=== PATIENT | female | born 1955 | race Two or more races ===

== ENCOUNTER 2024-10-04 11:31 | Inpatient (IN) | payer MEDICARE, MEDICAID ==
[~2024-10-04] VITALS: Ht 165.1 cm; Wt 54.8 kg
--- NOTE | 2024-10-04 11:37 | ED.PDOC ---
Altered Mental Status HPI Comments HPI: Poor historian 69-year-old female brought in by ambulance from home. Patient has a caregiver during the day but is alone at nighttime. Patient is blind. Patient is recently on amoxicillin from some type of upper respiratory infection she does not know. Patient has been more confused than normal in the last two days. Caregiver called 911. Patient follows commands awake alert to name and self. PMHx: Blindness, GERD, HTN, HLD PSHx: None Allergies: Initial Vital Signs: BP: 147/87 HR: 105 Temp: 100.0F SpO2: 97% RR: 18 REVIEW OF SYSTEMS: CONSTITUTIONAL: Denies acute: diaphoresis, chills, HEAD: Denies acute: headache, photophobia Eyes: Denies acute: Double vision, vision loss, eye pain, eye discharge. EARS: Denies acute: tinnitus, hearing loss, ear discharge, ear pain, THROAT: Denies acute: sore throat, swelling, difficulty swallowing , pain with swallowing, change in voice. NECK: Denies acute: neck pain, neck swelling, stiff neck. HEART: Denies acute : chest pain, palpitations, LUNGS: Denies acute: SOB, wheezing, cough, hemoptysis ABDOMEN: Denies acute: abdominal pain, Nausea, Vomiting, diarrhea, melena , hematemesis, hematochezia SKIN: Denies acute: rash, redness, lesions, itchiness. EXTREMITIES: Denies acute: calf pain, numbness, tingling, weakness, denies pain in extremity. Denies acute: Low back pain. Neuro: Denies acute: focal neurological deficit, motor or sensory focal neurological deficit, tremors, seizure like activity, dizziness, loss of bowel or bladder function, cauda equina like symptoms. : Denies acute: dysuria, hematuria, flank pain, increase in urinary frequency. PSYCH: Denies acute: hallucination, suicidal ideation, homicidal ideation. FEMALE: Denies acute: abnormal vaginal bleeding, foul odor, unusual discharge. PHYSICAL EXAM: General: no acute distress, awake and alert. Head: normocephalic, atraumatic. Neck: supple, trachea is midline, no swelling. Throat: Normal phonation. Eyes:, no erythema, no purulent discharge, no proptosis, no icterus. Heart: regular rate, regular rhythm, no significant murmur appreciated. Lungs: no apparent respiratory distress, Able to speak in full sentences. No wheezing, no rhonchi, no crackles. No stridors Clear to auscultation bilaterally. Abdomen: non tender to palpation, non distended, soft, no guarding, no rebound, + bowel sounds. Neuro: Awake, Alert, oriented to name, self, situation, follows commands GCS=15. Speech is normal. Skin: no petechia, no purpura, no cyanosis, non-pale, not jaundice. Lower extremities: --no - Pitting edema no deformity, no focal swelling, no calf TTP. Makes eye contact. moves all four extremities. Face: no apparent facial droop. Patient is blind Time Seen by MD: 11:35 Reviewed Notes: Medications, Allergies Allergies: Coded Allergies: NO KNOWN ALLERGIES (Unverified , 10/04/24) Information Source: Patient Mode of Arrival: EMS Was a procedure done? Was a procedure done?: No Differential Diagnosis (ALOC) Differential Diagnosis: Other (DDX include CVA, TGA, cerebellar ischemia/infarct, carotid stenosis, Intracranial mass/infection/bleed, encephalopathy, electrolyte abnormality, thyroid disease, hydrocephalus, hypoglycemia, drug toxicity, cardiac arrhythmia, seizure, infection in the el [place], Hyperammonemia., kidney failure., sepsis.) X-Ray, Labs, Meds, VS Vital Signs Date Time Temp Pulse Resp B/P (MAP) Pulse Ox O2 Delivery O2 Flow Rate FiO2 10/04/24 18:18 71 18 101/71 (81) 97 10/04/24 17:36 86 17 105/73 (84) 97 10/04/24 15:39 99.1 90 20 131/79 (96) 96 99.1 10/04/24 14:20 102.2 10/04/24 12:53 102.2 101 20 132/81 (98) 96 102.2 10/04/24 12:53 101 20 96 Room Air* 0 21 10/04/24 12:15 100.0 105 18 147/87 (107) 97 Lab Test 10/04/24 15:04 10/04/24 14:00 10/04/24 13:30 10/04/24 13:08 Range/Units Troponin I High Sensitivity 5 5 </=34 ng/L Urine Color Yellow Yellow Urine Clarity Clear Clear Urine pH 8.0 5.0-9.0 Urine Specific [place] 1.012 1.001-1.035 Urine Protein Negative Negative Urine Ketones Trace Negative Urine Blood Negative Negative /uL Urine Nitrite Negative Negative Urine Bilirubin Negative Negative Urine Urobilinogen Normal Negative mg/dL Urine Leukocyte Esterase Negative Negative /uL Urine RBC <1 0 - 4 /hpf Urine WBC 1 0 - 5 /hpf Urine Squamous Epithelial Cells Few <5 /hpf Urine Bacteria None seen None Seen /hpf Urine Glucose Normal Normal mg/dL Urine Opiates Screen Neg NEGATIVE Urine Fentanyl Screen Neg NEGATIVE Urine Barbiturates Screen Neg NEGATIVE Urine Phencyclidine Screen Neg NEGATIVE Urine Amphetamines Screen Neg NEGATIVE Urine Benzodiazepines Screen Neg NEGATIVE Urine Cocaine Screen Neg NEGATIVE Urine Cannabinoids Screen Neg NEGATIVE Influenza Type A Antigen Negative Negative Influenza Type B Antigen Negative Negative SARS-CoV-2 Antigen (Rapid) Negative NEGATIVE Test 10/04/24 11:58 Range/Units White Blood Count 3.7 L 4.4-10.8 10^3/uL Red Blood Count 3.16 L 4.0-5.20 10^6/uL Hemoglobin 11.4 L 12.2-16.2 g/dL Hematocrit 33.6 L 36.0-46.0 % Mean Corpuscular Volume 106.4 H 80.0-100.0 fL Mean Corpuscular Hemoglobin 36.1 H 28.0-32.0 pg Mean Corpuscular Hemoglobin Concent 33.9 32.0-36.0 g/dL Red Cell Distribution Width 15.6 H 11.8-14.3 % Platelet Count 174 140-450 10^3/uL Mean Platelet Volume 8.3 6.9-10.8 fL Neutrophils (%) (Auto) 82.6 H 37.0-80.0 % Lymphocytes (%) (Auto) 9.1 L 10.0-50.0 % Monocytes (%) (Auto) 8.0 0.0-12.0 % Eosinophils (%) (Auto) 0.0 0.0-7.0 % Basophils (%) (Auto) 0.3 0.0-2.0 % Neutrophils # (Auto) 3.1 1.6-8.6 10 ^3/uL Lymphocytes # (Auto) 0.3 L 0.4-5.4 10 ^3/uL Monocytes # (Auto) 0.3 0-1.3 10 ^3/uL Eosinophils # (Auto) 0 0-0.8 10 ^3/uL Basophils # (Auto) 0 0-0.2 10 ^3/uL Nucleated Red Blood Cells 0.1 % Sodium Level 143 136-145 mmol/L Potassium Level 4.0 3.5-5.1 mmol/L Chloride Level 111 H 98-107 mmol/L Carbon Dioxide Level 25 20-31 mmol/L Anion Gap 7 5-15 Blood Urea Nitrogen 5 L 9-23 mg/dL Creatinine 1.04 H 0.550-1.02 mg/dL Glomerular Filtration Rate Calc 57 >90 mL/min BUN/Creatinine Ratio 4.8 L 10.0-20.0 Serum Glucose 98 74-106 mg/dL Lactic Acid Level 1.5 0.4-2.0 mmol/L Calcium Level 9.5 8.7-10.4 mg/dL Magnesium Level 2.1 1.6-2.6 mg/dL Total Bilirubin 0.3 0.2-1.0 mg/dL Aspartate Amino Transferase (AST) 27 13-40 U/L Alanine Aminotransferase (ALT) 16 7-40 U/L Alkaline Phosphatase 50 46-116 U/L Ammonia < 10 L 11-32 umol/L Troponin I High Sensitivity 4 </=34 ng/L B-Type Natriuretic Peptide 15.70 0-100 pg/mL Total Protein 6.6 5.7-8.2 g/dL Albumin 4.4 3.2-4.8 g/dL Current Medications Medications (Trade) Dose Ordered Sig/Tania Route Start Time Stop Time Status Last Admin Acetaminophen (Tylenol Tablet) 650 mg ONCE ONCE PO 10/04/24 14:00 10/04/24 14:01 DC 10/04/24 14:20 [place] [id number] Ph: [phone] DIAGNOSTIC IMAGING Diagnostic Imaging Report : [id number] Signed PATIENT: WESLEY ALEJO ACCT: [id number] UNIT: [id number] : 1955 LOC: ER ROOM / BED: / AGE / SEX: 69 / F ADM STATUS: REG ER SERVICE [id number] ORDERING PHYSICIAN: JASVIR ROBLEDO DO PROCEDURE(s): CXRP - CHEST PORTABLE REASON: aloc, weak ORDER NUMBER(s): [id number], ACCESSION NUMBER(s): [id number] XY CHEST PORTABLE, HISTORY: aloc, weak COMPARISON: None None TECHNICAL DATA: 1 view of the chest was obtained. FINDINGS: Lines and tubes: None Cardiomediastinal silhouette: normal Pulmonary vasculature: normal Lung expansion: normal Lung airspace: normal Lung interstitium: normal Pleura: normal Pneumothorax: no Bones: Unremarkable Other: no IMPRESSION: No acute intrathoracic abnormality. ATED BY: RICHARD GARCIA MD DICTATED DATE/TIME: 10/04/241225 SIGNED BY: RICHARD GARCIA MD SIGNED DATE/TIME: 10/04/241225 Time of 1ST Reevaluation: 12:05 Reevaluation 1ST: Unchanged Patient Education/Counseling: Diagnosis, Treatment Family Education/Counseling: Diagnosis, Treatment Comments Patient presented with the above HPI.--AMS----workup was initiated. patient was found with the above mentioned diagnosis. Patient was given: Fluids and Rocephin Patient ED course and VS have been stabilized. Patient has been reassessed in the ED and remained in a stable condition. Pertinent incidental findings were discussed with the patient and/or family. Patient/family voices understanding and is agreeable with plan. Patient has been observed in the ED adequate length of time to insure improv ement/stability. patient was admitted to the medicine team for further evaluation and treatment of their presentation. All the reports of any imaging studies that were ordered by myself were reviewed by myself. Departure 1 Departure Time of Disposition: 12:46 Impression: Primary Impression: Altered mental status Additional Impression: Fever Disposition: 09 ADMITTED INPATIENT Admit to: Tele Condition: Guarded Discharged With: Self Critical Care Note Critical Care Time?: No I personally scribed for JASVIR ROBLEDO DO ([email or web address]) on 10/04/24 at 11:37. Electronically submitted by Carlos Ruiz ([email or web address]). I personally scribed for JASVIR ROBLEDO DO ([email or web address]) on 10/04/24 at 12:04. Electronically submitted by Carlos Ruiz ([email or web address]). I personally scribed for JASVIR ROBLEDO DO ([email or web address]) on 10/04/24 at 12:17. Electronically submitted by Carlos Ruiz ([email or web address]). I personally scribed for JASVIR ROBLEDO DO ([email or web address]) on 10/04/24 at 12:37. Electronically submitted by Carlos Ruiz ([email or web address]). JASVIR ROBLEDO DO Oct 04, 2024 11:37
--- NOTE | 2024-10-04 12:29 | DVH ---
XY CHEST PORTABLE, HISTORY: aloc, weak COMPARISON: None None TECHNICAL DATA: 1 view of the chest was obtained. FINDINGS: Lines and tubes: None Cardiomediastinal silhouette: normal Pulmonary vasculature: normal Lung expansion: normal Lung airspace: normal Lung interstitium: normal Pleura: normal Pneumothorax: no Bones: Unremarkable Other: no IMPRESSION: No acute intrathoracic abnormality.
[2024-10-04 12:30] LABS: Basophils # (auto) 0 10 ^3/uL (0-0.2); Eosinophils # (auto) 0 10 ^3/uL (0-0.8); Hemoglobin 11.4 g/dL (12.2-16.2); Monocytes # (auto) 0.3 10 ^3/uL (0-1.3); Neutrophils # (auto) 3.1 10 ^3/uL (1.6-8.6); Nucleated Red Blood Cells % 0.1 %
[2024-10-04 12:33] LABS: Basophils % (auto) 0.3 % (0.0-2.0); Hematocrit 33.6 % (36.0-46.0); Lymphocytes # (auto) 0.3 10 ^3/uL (0.4-5.4); Lymphocytes % (auto) 9.1 % (10.0-50.0); Mean Corpuscular Hemoglobin 36.1 pg (28.0-32.0); Mean Corpuscular Hgb Conc. 33.9 g/dL (32.0-36.0); Mean Corpuscular Volume 106.4 fL (80.0-100.0); Neutrophils % (auto) 82.6 % (37.0-80.0); Platelet Count (auto) 174 10^3/uL (140-450); Red Blood Cells 3.16 10^6/uL (4.0-5.20); Red Cell Distribution Width 15.6 % (11.8-14.3); White Blood Cell 3.7 10^3/uL (4.4-10.8)
[2024-10-04 12:53] VITALS: PULSE 101; RESP 20; O2SAT 96
[2024-10-04 12:54] LABS: Alanine Aminotransferase 16 U/L (7-40); Albumin 4.4 g/dL (3.2-4.8); Alkaline Phosphatase 50 U/L (46-116); Anion Gap 7 (5-15); Aspartate Aminotransferase 27 U/L (13-40); BUN/Creatinine Ratio 4.8 (10.0-20.0); Blood Urea Nitrogen 5 mg/dL (9-23); Calcium 9.5 mg/dL (8.7-10.4); Carbon Dioxide 25 mmol/L (20-31); Chloride 111 mmol/L (98-107); Glucose 98 mg/dL (74-106); Magnesium 2.1 mg/dL (1.6-2.6); Sodium 143 mmol/L (136-145)
[2024-10-04 12:55] LABS: Bilirubin, Total 0.3 mg/dL (0.2-1.0); Total Protein 6.6 g/dL (5.7-8.2)
--- NOTE | 2024-10-04 13:20 | DVH ---
EXAM: CT HEAD WITHOUT CONTRAST HISTORY: confusion COMPARISON: None TECHNIQUE: Axial images were obtained and reformatted in coronal and sagittal planes. All CT scans at this medical facility are performed using dose modulation techniques as appropriate t o a performed exam including the following: Automated exposure control was utilized; adjustment of th e MA and/or KV according to patient size; and use of iterative reconstruction technique. CT Dose: CTDI volume is 54.43 mGy. Dose-length product is 963.84 mGy*cm FINDINGS: Supratentorial Region: No evidence for large acute territorial ischemia. No intracranial hemorrhage is noted. Posterior Fossa: No acute abnormality. Brainstem: Unremarkable. Sellar/Suprasellar Region: Unremarkable. Ventricles, Cisterns, Sulci: Age-appropriate. Orbits: Unremarkable. Paranasal Sinuses: Unremarkable. Mastoid Air Cells: Unremarkable. Vasculature: Unremarkable. Bones/Soft Tissues: No acute abnormality. Other: None. IMPRESSION: 1. No acute intracranial process.
[2024-10-04 14:01] LABS: Urine Bacteria None Seen /hpf (None Seen)
[2024-10-04] MEDS: ACETAMINOPHEN 325 MG TAB PO ONE (14:20)
[2024-10-04 14:21] LABS: Urine Blood Negative /uL (Negative); Urine Clarity Clear (Clear); Urine Color Yellow (Yellow); Urine Protein, UAD Negative (Negative); Urine Specific Gravity 1.012 (1.001-1.035); Urine Urobilinogen Normal (Negative); Urine WBC 1 /hpf (0 - 5)
[2024-10-04 14:26] LABS: COVID19 ANTIGEN SOFIA FIA NEGATIVE (NEGATIVE)
[2024-10-04 14:27] LABS: Rapid Influenza A Negative (Negative); Rapid Influenza B Negative (Negative)
[2024-10-04 14:31] LABS: Amphetamine Screen, Urine Neg (NEGATIVE); Barbiturate Scree,Urine Neg (NEGATIVE); Benzodiazephine Screen, Urine Neg (NEGATIVE); Cocaine Screen, Urine Neg (NEGATIVE); Opiate Scree,Urine Neg (NEGATIVE)
[2024-10-04 14:32] LABS: Cannabinoid Screen, Urine Neg (NEGATIVE); Phencyclidine Screen, Urine Neg (NEGATIVE)
[2024-10-04 19:37] VITALS: PULSE 74; RESP 14; O2SAT 98
[2024-10-04] MEDS: cefTRIAXone 1GM/50ML D5W 50 ML IV ONE (20:39)
[2024-10-04] MEDS ORDERED: NITROGLYCERIN 0.4 MG SL TAB SL PRN (21:45)
[2024-10-04] MEDS ORDERED: ONDANSETRON HCL 4 MG/2 ML VIAL IV PRN (21:45)
[2024-10-04] MEDS ORDERED: ACETAMINOPHEN 325 MG TAB PO PRN (21:45)
[2024-10-04] MEDS ORDERED: MORPHINE SULFATE INJ 2 MG/ml SYRG IV PRN (21:45)
--- NOTE | 2024-10-04 22:16 | DVHHPRES ---
History of Present Illness Resident Creating Document: ADONAY DAMON RESIDENT History of Present Illness This is a 69-year-old female with past medical history of dementia, hypertension, arthritis, GERD, CHF, blindness, nodule in the lung presented to the ED via EMS with a chief complaint of altered mental status since morning prior to this admission. According to the caregiver the patient was not on herself and significant deterioration from the baseline that prompted this visit. On presentation patient was A&O x1 and elevated temperature 102 but later she became A&O x3 and was complaining of dry cough and low-grade fever for last 1 week. She was prescribed amoxicillin from urgent care for possible upper respiratory tract infection. The patient denies chest pain, dizziness, shortness of breath, abdominal pain, nausea, vomiting, any change in bowel and bladder habit, dysuria, sick contact or any traveling history. PCP: Dr. Scott Past Medical History Dementia, hypertension, arthritis, GERD, CHF, blindness, nodule in the lung Past Surgical History Knee Surgery ,hand surgery for carpal tunnel syndrome and 3 Family History Breast cancer runs in the family Smoke: No ALCOHOL: none Drugs: None Lives: Alone Review of Systems Constitutional: No: Fever, Chills, Sweats, Weakness, Malaise, Other Eyes: No: Pain, Vision change, Conjunctivae inflammation, Eyelid inflammation, Other, Redness ENT: No: Ear pain, Ear discharge, Nose pain, Nose discharge, Nose congestion, Mouth pain, Mouth swelling, Throat pain, Throat swelling, Other Respiratory: Cough, Dry; No: Shortness of breath, SOB with excertion, Wheezing, Hemoptysis, Pleuritic Pain, Sputum, Wheezing, Other Cardiovascular: No: Chest Pain, Palpitations, Orthopnea, Paroxysmal Noc. Dyspnea, Edema, Lt Headedness, Other Gastrointestinal: No: Nausea, Vomiting, Abdominal Pain, Diarrhea, Constipation, Melena, Hematochezia, Other Genitourinary: No Dysuria, No Frequency, No Incontinence, No Hematuria, No Retention, No Other Musculoskeletal: No: other, neck pain, shoulder pain, arm pain, back pain, hand pain, leg pain, foot pain Skin: No: Rash, Lesions, Jaundice, Bruising, Other Neurological: No: Weakness, Numbness, Incoordination, Change in speech, Confusion, Seizures, Other Allergies: Coded Allergies: NO KNOWN ALLERGIES (Unverified , 10/04/24) Medications Current Medications Medications Dose Ordered Sig/Tania Route Start Time Stop Time Status Last Admin Dose Admin Sodium Chloride 10 ml Q8HR IV 10/04/24 22:00 Acetaminophen 325 mg Q4HP PRN PO 10/04/24 21:45 Acetaminophen/ Hydrocodone Bitart 1 tab Q4HP PRN PO 10/04/24 21:45 Ondansetron HCl 4 mg Q4HP PRN IV 10/04/24 21:45 Enoxaparin Sodium 30 mg DAILY SC 10/05/24 10:00 Nitroglycerin 0.4 mg Q5MINP PRN SL 10/04/24 21:45 Morphine Sulfate 2 mg Q30M PRN IV 10/04/24 21:45 Exam Vital Signs Vital Signs Date Time Temp Pulse Resp B/P (MAP) Pulse Ox O2 Delivery O2 Flow Rate FiO2 10/04/24 21:00 71 16 108/69 (82) 98 10/04/24 19:37 98.6 98.6 10/04/24 19:37 Room Air* 0 21 Exam Physical examination: General Appearance: Alert, Oriented X3, Cooperative, No acute distress HEENT: Atraumatic, PERRLA, EOMI, Mucous membrane moist/pink Respiratory: Clear to auscultation, Normal air movement Cardiovascular: Regular rate, Normal S1, Normal S2, No murmurs, no chest wall tenderness Abdominal: Normal bowel sounds, Soft, No tenderness, No hepatospenomegaly, No masses Extremities: No clubbing, No cyanosis, No edema, Normal pulses, No tenderness/swelling Skin: No rashes, No breakdown, No significant lesion Neuro: Normal speech, Strength at 5/5 X4 ext, Normal tone, Sensation intact, grossly intact cranial nerves Psych/Mental Status: Mental status NL, Mood NL Labs/Xrays Labs Test 10/04/24 15:04 10/04/24 14:00 10/04/24 13:30 10/04/24 11:58 Range/Units Troponin I High Sensitivity 5 </=34 ng/L Urine Color Yellow Yellow Urine Clarity Clear Clear Urine pH 8.0 5.0-9.0 Urine Specific [place] 1.012 1.001-1.035 Urine Protein Negative Negative Urine Ketones Trace Negative Urine Blood Negative Negative /uL Urine Nitrite Negative Negative Urine Bilirubin Negative Negative Urine Urobilinogen Normal Negative mg/dL Urine Leukocyte Esterase Negative Negative /uL Urine RBC <1 0 - 4 /hpf Urine WBC 1 0 - 5 /hpf Urine Squamous Epithelial Cells Few <5 /hpf Urine Bacteria None seen None Seen /hpf Urine Glucose Normal Normal mg/dL Urine Opiates Screen Neg NEGATIVE Urine Fentanyl Screen Neg NEGATIVE Urine Barbiturates Screen Neg NEGATIVE Urine Phencyclidine Screen Neg NEGATIVE Urine Amphetamines Screen Neg NEGATIVE Urine Benzodiazepines Screen Neg NEGATIVE Urine Cocaine Screen Neg NEGATIVE Urine Cannabinoids Screen Neg NEGATIVE Influenza Type A Antigen Negative Negative Influenza Type B Antigen Negative Negative SARS-CoV-2 Antigen (Rapid) Negative NEGATIVE White Blood Count 3.7 L 4.4-10.8 10^3/uL Red Blood Count 3.16 L 4.0-5.20 10^6/uL Hemoglobin 11.4 L 12.2-16.2 g/dL Hematocrit 33.6 L 36.0-46.0 % Mean Corpuscular Volume 106.4 H 80.0-100.0 fL Mean Corpuscular Hemoglobin 36.1 H 28.0-32.0 pg Mean Corpuscular Hemoglobin Concent 33.9 32.0-36.0 g/dL Red Cell Distribution Width 15.6 H 11.8-14.3 % Platelet Count 174 140-450 10^3/uL Mean Platelet Volume 8.3 6.9-10.8 fL Neutrophils (%) (Auto) 82.6 H 37.0-80.0 % Lymphocytes (%) (Auto) 9.1 L 10.0-50.0 % Monocytes (%) (Auto) 8.0 0.0-12.0 % Eosinophils (%) (Auto) 0.0 0.0-7.0 % Basophils (%) (Auto) 0.3 0.0-2.0 % Neutrophils # (Auto) 3.1 1.6-8.6 10 ^3/uL Lymphocytes # (Auto) 0.3 L 0.4-5.4 10 ^3/uL Monocytes # (Auto) 0.3 0-1.3 10 ^3/uL Eosinophils # (Auto) 0 0-0.8 10 ^3/uL Basophils # (Auto) 0 0-0.2 10 ^3/uL Nucleated Red Blood Cells 0.1 % Sodium Level 143 136-145 mmol/L Potassium Level 4.0 3.5-5.1 mmol/L Chloride Level 111 H 98-107 mmol/L Carbon Dioxide Level 25 20-31 mmol/L Anion Gap 7 5-15 Blood Urea Nitrogen 5 L 9-23 mg/dL Creatinine 1.04 H 0.550-1.02 mg/dL Glomerular Filtration Rate Calc 57 >90 mL/min BUN/Creatinine Ratio 4.8 L 10.0-20.0 Serum Glucose 98 74-106 mg/dL Lactic Acid Level 1.5 0.4-2.0 mmol/L Calcium Level 9.5 8.7-10.4 mg/dL Magnesium Level 2.1 1.6-2.6 mg/dL Total Bilirubin 0.3 0.2-1.0 mg/dL Aspartate Amino Transferase (AST) 27 13-40 U/L Alanine Aminotransferase (ALT) 16 7-40 U/L Alkaline Phosphatase 50 46-116 U/L Ammonia < 10 L 11-32 umol/L B-Type Natriuretic Peptide 15.70 0-100 pg/mL Total Protein 6.6 5.7-8.2 g/dL Albumin 4.4 3.2-4.8 g/dL Assessment/Plan Assessment/Plan Assessment and plan: # Acute metabolic encephalopathy due to unspecified cause - CT scan of the head revealed no acute intracranial abnormality - Chest x-ray and UA are negative for signs of infection - Covid and flu both negative - Pending blood culture. # NILS likely secondary to hemodynamically mediated/VMN - IV normal saline at 75 mL/hour - Monitor BMP # Hyperlipidemia - Ezetimibe 10 mg p.o. daily. # DVT prophylaxis - Lovenox 30 mg p.o. daily Goal of care discussed with the patient for more than 20 minutes full code Plan of treatment discussed with Dr. Suarez Plan discussed with: Patient, Other My Orders Orders - ADONAY DAMON RESIDENT Procedure Category Date Status Time Admit ADMIT 10/04/24 Transmitted 21:33 Code Status CODE 10/04/24 Transmitted 21:33 2 Gm Sodium Diet DIET 10/05/24 Transmitted Breakfast Sodium Chloride Lock PHA 10/04/24 In Process (Saline Lock Ns) 22:00 Oxygen Per Hour RT 10/04/24 Transmitted 21:33 Acetaminophen Tablet PHA 10/04/24 In Process (Tylenol Tablet) 21:45 Hydrocodone-Acet PHA 10/04/24 In Process 5/325mg Tab ([place] 21:45 Ondansetron Hcl PHA 10/04/24 In Process (Zofran) 21:45 Complete Blood Count LAB 10/05/24 Verified 04:00 Comprehensive LAB 10/05/24 Verified Metabolic Panel 04:00 Echo 2d Mode Cardiac US 10/04/24 Logged DOP 21:33 Enoxaparin Sodium PHA 10/05/24 In Process (Lovenox) 10:00 Nitroglycerin PHA 10/04/24 In Process Sublingual (Ntrostat 21:45 Morphine Sulfate PHA 10/04/24 In Process Injection 21:45 Oxygen By Nasal RT 10/04/24 Transmitted Cannula 21:33 Stat Ekg For Chest ARTURO 10/04/24 In Process Pain 21:33 Notify Of Changes ARTURO 10/04/24 In Process From Base 21:33 Lathe Machinist For ARTURO 10/04/24 In Process 24 Hours 21:33 Emergency Dysrhythmia ARTURO 10/04/24 In Process Protocol 21:33 Rhythm Strips Once ARTURO 10/04/24 In Process Every Shift 21:33 NS PHA 10/04/24 Transmitted 22:15 Hemoglobin A1c LAB 10/04/24 Transmitted 22:13 Thyroid Stimulating LAB 10/04/24 Transmitted Hormone 22:13 Vitamin B12 LAB 10/04/24 Transmitted 22:13 Vitamin D, 25-Hydroxy LAB 10/04/24 Transmitted 22:13 DAONAY DAMON RESIDENT Oct 04, 2024 22:16
[2024-10-04] MEDS: SODIUM CHLOR 0.9% PF (SALINE LOCK) 10ML VIAL/SYR IV SCH (22:18)
[2024-10-04] MEDS: SODIUM CHLORIDE 0.9% 1,000 ML IV SCH (22:25)
[2024-10-05] VITALS (8 sets, daily range): BP systolic 120–140; BP diastolic 68–80; PULSE 68–89; RESP 17–18; TEMP 98–100.1; O2SAT 94–99
[2024-10-05] MEDS ORDERED: METO25TA93 PO (02:40)
[2024-10-05] MEDS ORDERED: MECL-126 PO (02:40)
[2024-10-05] MEDS ORDERED: SULF500T57 PO (02:40)
[2024-10-05] MEDS ORDERED: GABA-1250 PO (02:40)
[2024-10-05] MEDS ORDERED: HYDR1TAB97 PO (02:40)
[2024-10-05] MEDS ORDERED: TOPI50TA53 PO (02:40)
[2024-10-05] MEDS ORDERED: TOFA1TAB PO (02:40)
[2024-10-05] MEDS ORDERED: PRAV20TA3 PO (02:40)
[2024-10-05] MEDS ORDERED: MAGN241.4 PO (02:40)
[2024-10-05] MEDS ORDERED: DICY10CA PO (02:40)
[2024-10-05] MEDS ORDERED: EZET-10 PO (02:40)
[2024-10-05] MEDS ORDERED: DONE1TAB88 PO (02:40)
[2024-10-05] MEDS ORDERED: SUMA100T15 PO (02:40)
[2024-10-05] MEDS ORDERED: DIPH25CA66 PO (02:40)
[2024-10-05] MEDS ORDERED: METH2.5T62 PO (02:40)
[2024-10-05] MEDS ORDERED: ALBU108A5 INH (02:40)
[2024-10-05] MEDS ORDERED: PANT40T PO (02:40)
[2024-10-05] MEDS ORDERED: INDO-34 PO (02:40)
[2024-10-05 07:40] LABS: Basophils # (auto) 0 10 ^3/uL (0-0.2); Basophils % (auto) 0.4 % (0.0-2.0); Eosinophils # (auto) 0 10 ^3/uL (0-0.8); Hematocrit 32.6 % (36.0-46.0); Hemoglobin 10.6 g/dL (12.2-16.2); Lymphocytes # (auto) 0.4 10 ^3/uL (0.4-5.4); Lymphocytes % (auto) 15.8 % (10.0-50.0); Mean Corpuscular Hemoglobin 34.7 pg (28.0-32.0); Mean Corpuscular Hgb Conc. 32.4 g/dL (32.0-36.0); Mean Corpuscular Volume 106.9 fL (80.0-100.0); Monocytes # (auto) 0.3 10 ^3/uL (0-1.3); Monocytes % (auto) 10.3 % (0.0-12.0); Neutrophils # (auto) 1.9 10 ^3/uL (1.6-8.6); Neutrophils % (auto) 73.5 % (37.0-80.0); Nucleated Red Blood Cells % 0.1 %; Platelet Count (auto) 173 10^3/uL (140-450); Red Blood Cells 3.05 10^6/uL (4.0-5.20); Red Cell Distribution Width 16.4 % (11.8-14.3); White Blood Cell 2.6 10^3/uL (4.4-10.8)
[2024-10-05 07:56] LABS: Alanine Aminotransferase 11 U/L (7-40); Alkaline Phosphatase 42 U/L (46-116); Anion Gap 9 (5-15); Aspartate Aminotransferase 22 U/L (13-40); Blood Urea Nitrogen 6 mg/dL (9-23); Carbon Dioxide 20 mmol/L (20-31); Chloride 112 mmol/L (98-107); Glucose 81 mg/dL (74-106); Potassium 3.6 mmol/L (3.5-5.1); Sodium 141 mmol/L (136-145)
[2024-10-05 07:57] LABS: Bilirubin, Total 0.3 mg/dL (0.2-1.0); Total Protein 6.2 g/dL (5.7-8.2)
[2024-10-05] MEDS: ENOXAPARIN SOD 30 MG/0.3 ML SYRINGE SC SCH (08:19)
[2024-10-05] MEDS: ASPirin-EC 81 mg tab PO SCH (08:20)
[2024-10-05 08:52] LABS: INR 1.02 (0.9-1.15); Partial Thromboplastin Time 29.9 SEC (24.5-34.5); Prothrombin Time 10.8 sec (9.3-11.8)
--- NOTE | 2024-10-05 09:43 | DVH ---
Procedure: US LIVER 10/05/2024 08:46 AM Indication: RUQ pain. Comparison: None Technique: Grayscale and color images of the right upper quadrant were obtained. FINDINGS: ASCITES: None. LIVER: Liver measures 11.3 cm craniocaudal. Liver parenchyma is homogeneous in echotexture. No focal lesion is identified. No intrahepatic ductal dilatation. Normal directional flow is seen in the port al vein. GALLBLADDER: No gallstones. No gallbladder wall edema or pericholecystic fluid. A fold is seen in gal lbladder lumen. Sonographic Jama's sign is negative. COMMON BILE DUCT: 0.2 cm in caliber, within normal limits. PANCREAS: Visualized portions are unremarkable. RIGHT KIDNEY: Normal in size, 8.3 cm in length without hydronephrosis. No focal lesions identified. AORTA, IVC: Visualized portions are unremarkable. OTHER: None. IMPRESSION: 1. No sonographic evidence for acute abnormality in the right upper quadrant. No cholelithiasis or ev idence of cholecystitis.
[2024-10-05] MEDS: EZETIMIBE 10 MG TAB PO SCH (10:00)
--- NOTE | 2024-10-05 10:18 | DVHPNRES ---
Progress Note Date Seen: Oct 05, 2024 Resident Creating Document: LUPILLO HAUSER RESIDENT Medical Necessity Reason Pt with a Central, PICC or Fol: No Subjective Review of Systems This is a 69 year old female with PMHx of dementia, rheumatoid arthritis on methotrexate, GERD, congestive heart failure, hypertension, solitary pulmonary nodule who presented to the ER with a chief complaint of altered mental status. Patient was A&O x1 on arrival and had a fever of 102 F associated with dry cough. Patient lives alone and has a caregiver at home for 6 hours daily. On my evaluation, patient is A&O x3 but not aware to why she was brought to the hospital. She reports that she is legally blind, says that she is experiencing the abdominal pain along with nausea but no vomiting. Denies constipation or diarrhea. She reports feeling feverish but does not know for how long she has a fever. Also reports a dry cough. Per H&P, she was prescribed amoxicillin from urgent care for upper respiratory tract infection. Social history, lives alone. Denies drinking/smoking social illicit drug use. Patient is a [employer]. She has a caregiver at home. Son lives 5 minutes away. She ambulates with a walker. Home medications: Benadryl, donepezil, gabapentin, azithromycin, metoprolol, methotrexate injection every week, pravastatin, Triptan, pantoprazole 40 mg daily, topiramate 10/05 - patient seen and examined at the bedside. Patient is A&O x3. Reports no active complaint. Abdominal pain on tenderness. Objective vital signs Vital Sign Date Time Temp Pulse Resp B/P (MAP) Pulse Ox O2 Delivery O2 Flow Rate FiO2 10/05/24 09:00 98.6 80 18 140/80 (100) 97 98.6 10/05/24 01:39 Room Air* 0 21 Total Intake and Output 10/04/24 10/04/24 10/05/24 15:00 23:00 07:00 Intake Total 100 ml 75 ml Balance 100 ml 75 ml medications Current Medications Medications Dose Ordered Sig/Tania Route Start Time Stop Time Status Last Admin Dose Admin Sodium Chloride 10 ml Q8HR IV 10/04/24 22:00 10/05/24 05:38 10 ML Acetaminophen 325 mg Q4HP PRN PO 10/04/24 21:45 Acetaminophen/ Hydrocodone Bitart 1 tab Q4HP PRN PO 10/04/24 21:45 Ondansetron HCl 4 mg Q4HP PRN IV 10/04/24 21:45 Enoxaparin Sodium 30 mg DAILY SC 10/05/24 10:00 10/05/24 08:19 30 MG Nitroglycerin 0.4 mg Q5MINP PRN SL 10/04/24 21:45 Morphine Sulfate 2 mg Q30M PRN IV 10/04/24 21:45 Sodium Chloride 1,000 ml @ 75 mls/hr [id number] IV 10/04/24 22:15 10/04/24 22:25 75 MLS/HR EZETIMIBE 10 mg DAILY PO 10/05/24 10:00 Aspirin 81 mg DAILY PO 10/05/24 10:00 10/05/24 08:20 81 MG Examination Elderly female patient lying in bed, in no acute distress, wearing glasses because he can not see. General: Cachectic-looking, afebrile, palor, mucosae are dry Cardiovascular: Regular S1 and S2. No murmurs, gallops or rubs. No JVD elevation. Bilateral 1+ pitting edema Respiratory: Decreased bilateral air entry. On Room air Abdomen: Soft, tender right upper quadrant and epigastrium, nondistended, normoactive bowel sounds, no rebound tenderness, no organomegaly, no masses Genitourinary: Deferred MSK/skin: Mobilizes 4 limbs. Skin is dry and warm Neurological: No motor, no sensitive deficits, normal speech. Pupils are isocoric and reactive. Psych/Mental Status: A/Ox3-not oriented to situation laboratory and microbiology Laboratory Tests 10/05/24 06:36 Test 10/05/24 06:36 Range/Units Serum Glucose 81 74-106 mg/dL Labs and/or images reviewed: Labs reviewed by me, Image(s) reviewed by me Problem List/Assessment/Plan Problem List/Assessment/Plan Acute metabolic encephalopathy likely due to viral pneumonia CT head completed, shows no acute intracranial abnormality Hold home medication dicyclomine, Benadryl, gabapentin Probable community-acquired pneumonia, Gram-positive and Gram-negative IV ceftriaxone and azithromycin starting 10/05/2024 Sputum culture pending, MRSA screen pending, COVID and influenza testing is negative Rapid streptococcal antigen screening pending Probable congestive heart failure Patient reports CHF BNP 15 Echocardiogram pending Anemia likely microcytic-cause unknown MCV 106.9 Vitamin B12/folate within normal Patient denies drinking alcohol, blood alcohol pending Low likelihood of NILS Creatinine 1.04 GERD Pantoprazole 40 mg daily GI cocktail 30 mL once to be given History of dementia Continue home medication donepezil daily Dyslipidemia Continue home medication ezetimide 10 mg daily DVT prophylaxis Lovenox 40 mg sc daily food services director consulted for home safety eval Physical therapy eval pending Plan discussed with patient in which all questions have been answered Goals of care discussed with the patient for more than 22 minutes, DNR status Case discussed with Dr. Suarez. Echocardiogram pending. Plan discussed with: Patient My Orders My Orders Orders - LUPILLO HAUSER Procedure Category Date Status Time Blood Alcohol LAB 10/05/24 Logged 07:07 LIVER US 10/05/24 Resulted 08:19 LUPILLO HAUSER Oct 05, 2024 10:18
[2024-10-05] MEDS: cefTRIAXone 1GM/50ML D5W 50 ML IV SCH (11:46)
[2024-10-05] MEDS: POTASSIUM EFFERVESENT TAB 25 MEQ PO ONE (11:47)
[2024-10-05] MEDS: PANTOPRAZOLE 40 MG/10 ML VIAL INJ IV ONE (11:47)
[2024-10-05] MEDS: AZITHROMYCIN 500MG/ 250ML 250 ML IV SCH (12:19)
--- NOTE | 2024-10-05 18:44 | DVHSR ---
APPROVED REPORT EXAM: Two-dimensional and M-mode echocardiogram with Doppler and color Doppler. Blood Pressure: 121/70 mmHg INDICATION Dyspnea RISK FACTORS Height: 5'5", Weight: 103 DIMENSIONS LVDd4.0 (3.8-5.7cm)LA (2D)2.2 (1.9-4.0cm)Aortic Root (2.0-3.7cm) LVDs3.0 (2.5-4.0cm)LA (MM) (1.9-4.0cm)Aortic Cusp Exc (1.5-2.0cm) EF (%) 50.0 (55-70%)Rt. Atrium (1.9-4.0cm)Asc. Aorta cm IVSd0.7 (0.7-1.1cm)RV (D) (1.8-2.4cm) PWd0.8 (0.7-1.1cm) Mitral Valve MitralMitral Stenosis E/A ratio0.02D MVAcm2 Aortic Valve Aortic ValveAortic Stenosis LVOT Diameter1.9 (1.8-2.4cm)Doppler AVAcm2 Pulmonic Valve V20.69m/s Tricuspid Valve TR Velocity2.25m/s [id number] Other Information Quality : Technically LimitedRhythm : Technically limited study due to body habitus. Conclusion Normal left ventricular size and dimension. Normal left ventricular systolic function estimated ejec tion fraction 55%. There is a grade 1 diastolic dysfunction. Normal right ventricular size and dimension.. Normal right ventricular systolic function. Mildly el evated right ventricular systolic pressure at 27 mm of mercury Normal biatrial size and dimension. Normal aortic valve structure and function. Normal mitral valve structure and function. There is mild tricuspid valve regurgitation.. The pulmonary valve is grossly normal. No pericardial effusion. Normal
[2024-10-05] MEDS: DONEPEZIL HYDROCHLORIDE 5 MG TAB PO SCH (22:28)
[2024-10-06] VITALS (13 sets, daily range): BP systolic 101–131; BP diastolic 41–82; PULSE 65–98; RESP 16–20; TEMP 98.2–98.8; O2SAT 90–100
[2024-10-06] MEDS: PANTOPRAZOLE 40 MG TAB PO SCH (06:19)
[2024-10-06 06:24] LABS: Basophils # (auto) 0 10 ^3/uL (0-0.2); Eosinophils # (auto) 0 10 ^3/uL (0-0.8); Lymphocytes # (auto) 0.5 10 ^3/uL (0.4-5.4); Mean Corpuscular Hgb Conc. 33.6 g/dL (32.0-36.0); Monocytes # (auto) 0.3 10 ^3/uL (0-1.3); Neutrophils # (auto) 1.9 10 ^3/uL (1.6-8.6); White Blood Cell 2.7 10^3/uL (4.4-10.8)
[2024-10-06 06:31] LABS: Basophils % (auto) 0.2 % (0.0-2.0); Hematocrit 35.1 % (36.0-46.0); Hemoglobin 11.8 g/dL (12.2-16.2); Lymphocytes % (auto) 17.1 % (10.0-50.0); Mean Corpuscular Hemoglobin 35.4 pg (28.0-32.0); Mean Corpuscular Volume 105.5 fL (80.0-100.0); Monocytes % (auto) 12.4 % (0.0-12.0); Neutrophils % (auto) 70.3 % (37.0-80.0); Nucleated Red Blood Cells % 0.2 %; Platelet Count (auto) 208 10^3/uL (140-450); Red Blood Cells 3.32 10^6/uL (4.0-5.20); Red Cell Distribution Width 15.8 % (11.8-14.3)
[2024-10-06 06:36] LABS: Anion Gap 9 (5-15); Carbon Dioxide 23 mmol/L (20-31); Chloride 109 mmol/L (98-107); Potassium 3.6 mmol/L (3.5-5.1); Sodium 141 mmol/L (136-145)
[2024-10-06 06:38] LABS: Calcium 9.4 mg/dL (8.7-10.4)
[2024-10-06 06:42] LABS: Glucose 83 mg/dL (74-106)
[2024-10-06 06:43] LABS: BUN/Creatinine Ratio 6.4 (10.0-20.0); Blood Urea Nitrogen < 5 mg/dL (9-23)
[2024-10-06] MEDS: MAALOX PLUS or MAALOX 30 ML PO ONE (08:31)
[2024-10-06] MEDS ORDERED: ALBUTEROL SULF 2.5 MG/0.5ML(0.5%) NEB SOLN NEB SCH (11:15)
[2024-10-06] MEDS ORDERED: IPRATROPIUM BROM 0.5 MG/2.5ML INH SOL NEB SCH (11:15)
--- NOTE | 2024-10-06 11:20 | DVHPNRES ---
Progress Note Date Seen: Oct 06, 2024 Resident Creating Document: LUPILLO HAUSER RESIDENT Medical Necessity Reason Pt with a Central, PICC or Fol: No Subjective Review of Systems This is a 69 year old female with PMHx of dementia, rheumatoid arthritis on methotrexate, GERD, congestive heart failure, hypertension, solitary pulmonary nodule who presented to the ER with a chief complaint of altered mental status. Patient was A&O x1 on arrival and had a fever of 102 F associated with dry cough. Patient lives alone and has a caregiver at home for 6 hours daily. On my evaluation, patient is A&O x3 but not aware to why she was brought to the hospital. She reports that she is legally blind, says that she is experiencing the abdominal pain along with nausea but no vomiting. Denies constipation or diarrhea. She reports feeling feverish but does not know for how long she has a fever. Also reports a dry cough. Per H&P, she was prescribed amoxicillin from urgent care for upper respiratory tract infection. Social history, lives alone. Denies drinking/smoking social illicit drug use. Patient is a [employer]. She has a caregiver at home. Son lives 5 minutes away. She ambulates with a walker. Home medications: Benadryl, donepezil, gabapentin, azithromycin, metoprolol, methotrexate injection every week, pravastatin, Triptan, pantoprazole 40 mg daily, topiramate 10/05 - patient seen and examined at the bedside. Patient is A&O x3. Reports no active complaint. Abdominal pain on tenderness. 10/06 - reports feeling little better. Dry cough on deep inhalation. Changed Azithro to doxy. Mrsa nasres. Abd tenderness, CT Abd/pel wo con completed - shows patchy ground-glass opacities in the visualized lower lungs, [id number]-right. These may represent developing airspace disease. strep ag negative Objective vital signs Vital Sign Date Time Temp Pulse Resp B/P (MAP) Pulse Ox O2 Delivery O2 Flow Rate FiO2 10/06/24 09:00 98.8 84 18 101/41 (61) 98 98.8 10/06/24 08:00 Room Air* 0 21 Total Intake and Output 10/05/24 10/05/24 10/06/24 15:00 23:00 07:00 Intake Total 300 ml 300 ml 700 ml Output Total 3 ml Balance 300 ml 300 ml 697 ml medications Current Medications Medications Dose Ordered Sig/Tania Route Start Time Stop Time Status Last Admin Dose Admin Sodium Chloride 10 ml Q8HR IV 10/04/24 22:00 10/06/24 06:20 10 ML Acetaminophen 325 mg Q4HP PRN PO 10/04/24 21:45 Acetaminophen/ Hydrocodone Bitart 1 tab Q4HP PRN PO 10/04/24 21:45 Ondansetron HCl 4 mg Q4HP PRN IV 10/04/24 21:45 Enoxaparin Sodium 30 mg DAILY SC 10/05/24 10:00 10/06/24 09:15 30 MG Nitroglycerin 0.4 mg Q5MINP PRN SL 10/04/24 21:45 Morphine Sulfate 2 mg Q30M PRN IV 10/04/24 21:45 Sodium Chloride 1,000 ml @ 75 mls/hr [id number] IV 10/04/24 22:15 10/04/24 22:25 75 MLS/HR EZETIMIBE 10 mg DAILY PO 10/05/24 10:00 Aspirin 81 mg DAILY PO 10/05/24 10:00 10/06/24 08:31 81 MG Ceftriaxone Sodium 50 ml @ 100 mls/hr DAILY@09 IV 10/05/24 10:15 10/06/24 08:32 100 MLS/HR Azithromycin 250 ml @ 125 mls/hr DAILY IV 10/05/24 11:00 10/06/24 09:16 125 MLS/HR Pantoprazole Sodium 40 mg DAILY@0600 PO 10/06/24 06:00 10/06/24 06:19 40 MG Donepezil HCl 5 mg HS PO 10/05/24 22:00 10/05/24 22:28 5 MG Ipratropium Mcdonough 0.5 mg Q4HR NEB 10/06/24 11:15 UNV Albuterol 1.25 mg Q4HR NEB 10/06/24 11:15 UNV Examination Elderly female patient lying in bed, in no acute distress, wearing glasses because he can not see. General: Cachectic-looking, afebrile, palor, mucosae are dry Cardiovascular: Regular S1 and S2. No murmurs, gallops or rubs. No JVD elevation. Bilateral 1+ pitting edema Respiratory: Decreased bilateral air entry with B/l rhonchi. On Room air. Dry cough on deep inhalation Abdomen: Soft, tender right upper quadrant and epigastrium, nondistended, normoactive bowel sounds, no rebound tenderness, no organomegaly, no masses Genitourinary: Deferred MSK/skin: Mobilizes 4 limbs. Skin is dry and warm Neurological: No motor, no sensitive deficits, normal speech. Pupils are isocoric and reactive. Psych/Mental Status: A/Ox3-not oriented to situation laboratory and microbiology Laboratory Tests 10/06/24 05:18 Test 10/06/24 05:18 Range/Units Serum Glucose 83 74-106 mg/dL Microbiology Date/Time Source Procedure Growth Status 10/04/24 11:58 Blood Blood Culture - Preliminary NO GROWTH AFTER 24 HOURS OF INCUBATION. Resulted Labs and/or images reviewed: Labs reviewed by me, Image(s) reviewed by me Problem List/Assessment/Plan Problem List/Assessment/Plan Acute metabolic encephalopathy likely due to pneumonia CT head completed, shows no acute intracranial abnormality Hold home medication dicyclomine, Benadryl, gabapentin Probable community-acquired pneumonia, Gram-positive and Gram-negative CT ABD/Pel shows patchy ground-glass opacities in the visualized lower lungs, [id number]-right. These may represent developing airspace disease. IV ceftriaxone starting 10/05/2024, completed azithro 10/05 to 10/06 Changed Azithro to doxy 10/06 Sputum culture pending, MRSA screen negative, COVID and influenza testing is negative Rapid streptococcal antigen screening negative Continue nebulized treatment with ipratropium and albuterol q.4 scheduled Probable congestive heart failure - no exacerbation Patient reports CHF BNP 15 Echocardiogram 10/05 Normal left ventricular size and dimension. Normal left ventricular systolic function estimated ejection fraction 55%. There is a grade 1 diastolic dysfunction. Normal RVSP. Mildly elevated right ventricular systolic pressure at 27 mm of mercury Anemia likely microcytic-cause unknown MCV 106.9 Vitamin B12/folate within normal Patient denies drinking alcohol, blood alcohol 3.6 Low likelihood of NILS Creatinine 1.04, now 0.78 GERD Pantoprazole 40 mg daily GI cocktail 30 mL once to be given 10/05 History of dementia Continue home medication donepezil daily Dyslipidemia Continue home medication ezetimide 10 mg daily DVT prophylaxis Lovenox 40 mg sc daily career services manager consulted for home safety eval Physical therapy eval - recommended home health, wheelchair and nypys-mo-mio commode Plan discussed with patient in which all questions have been answered Goals of care discussed with the patient for more than 22 minutes, DNR status Case discussed with Dr. Suarez. Plan discussed with: Patient My Orders My Orders Orders - LUPILLO HAUSER Procedure Category Date Status Time 2 Gm Sodium Diet DIET 10/05/24 Transmitted Lunch Respiratory Culture HOLLI 10/05/24 Logged W/ Gs 18:53 Sputum Induction RT 10/05/24 Logged 18:53 Communication Order ORDERS 10/05/24 Transmitted 18:54 Donepezil Tablet PHA 10/05/24 In Process (Aricept Tablet) 22:00 Ipratropium Medneb PHA 10/06/24 Logged (Atrovent Medneb) 11:15 Albuterol Medneb PHA 10/06/24 Logged (Ventolin Medneb) 11:15 LUPILLO HAUSER RESIDENT Oct 06, 2024 11:20
--- NOTE | 2024-10-06 12:11 | DVH ---
CT ABDOMEN AND PELVIS WITHOUT CONTRAST CLINICAL HISTORY: abdominal pain TECHNIQUE: Multidetector CT of the abdomen was performed from lung bases to pubic symphysis. Imaging was performed without IV contrast. Axial, coronal and sagittal multiplanar reformats were obtained fr om the axial data set by the technologist. Radiation optimization: All CT scans at this facility use at least one of these dose optimization asaf hniques: automated exposure control mA and/or kV adjustment per patient size (includes targeted exam s where dose is matched to clinical indication) or iterative reconstruction. Radiation Dose Information: CT Dose: CTDI volume is 5.34 mGy. Dose-length product is 259.6 mGy*cm Comparison: None FINDINGS: Evaluation of the abdominal viscera is limited without intravenous contrast. The liver, gallbladder, pancreas, kidneys, adrenal glands, and spleen appear within normal limits. There is no gross evidence of abdominal lymphadenopathy. There is no free fluid or free air. The stomach grossly appears unremarkable. The small and large bowel loops demonstrate normal caliber. The abdominal aorta and IVC appear within normal limits. The bladder appears unremarkable for the degree of distention. Uterus is surgically absent. There is no gross evidence of a pelvic mass or free fluid.. There are patchy ground-glass opacities in the visualized lower lungs, [id number]-right. These may represent developing airspace disease. There is no acute osseous abnormality. IMPRESSION: 1. There is no acute process in the abdomen and pelvis.. 2. Nonspecific patchy ground-glass opacities in the visualized lower lungs, [id number]-right. Developing airspace disease is not excluded. Clinical correlation is recommended. HS:Y
[2024-10-06] MEDS: POTASSIUM EFFERVESENT TAB 25 MEQ PO ONE (12:43)
[2024-10-06] MEDS: DOXYCYCLINE 100MG/250ML 250 ML IV SCH (12:43)
[2024-10-06 13:46] LABS: Rapid Strep A Screen-Throat Negative
[2024-10-06] MEDS: IPRATROPIUM BROM 0.5 MG/2.5ML INH SOL NEB SCH (19:09)
[2024-10-06] MEDS: ALBUTEROL SULF 2.5 MG/0.5ML(0.5%) NEB SOLN NEB SCH (19:09)
[2024-10-07] VITALS (18 sets, daily range): BP systolic 111–131; BP diastolic 62–80; PULSE 65–119; RESP 16–20; TEMP 98.4–98.7; O2SAT 95–100
[2024-10-07 07:14] LABS: Basophils # (auto) 0 10 ^3/uL (0-0.2); Basophils % (auto) 0.1 % (0.0-2.0); Eosinophils # (auto) 0 10 ^3/uL (0-0.8); Hemoglobin 11.9 g/dL (12.2-16.2); Lymphocytes # (auto) 0.4 10 ^3/uL (0.4-5.4); Mean Corpuscular Hemoglobin 35.3 pg (28.0-32.0); Mean Corpuscular Hgb Conc. 33.2 g/dL (32.0-36.0); Mean Corpuscular Volume 106.3 fL (80.0-100.0); Monocytes # (auto) 0.6 10 ^3/uL (0-1.3); Monocytes % (auto) 12.2 % (0.0-12.0); Neutrophils # (auto) 3.7 10 ^3/uL (1.6-8.6); Neutrophils % (auto) 79.7 % (37.0-80.0); Platelet Count (auto) 228 10^3/uL (140-450); Red Blood Cells 3.38 10^6/uL (4.0-5.20); Red Cell Distribution Width 15.9 % (11.8-14.3); White Blood Cell 4.7 10^3/uL (4.4-10.8)
[2024-10-07 07:23] LABS: Anion Gap 10 (5-15); Carbon Dioxide 21 mmol/L (20-31); Chloride 107 mmol/L (98-107); Potassium 3.8 mmol/L (3.5-5.1); Sodium 138 mmol/L (136-145)
[2024-10-07 07:24] LABS: Calcium 9.5 mg/dL (8.7-10.4)
[2024-10-07 07:29] LABS: Glucose 109 mg/dL (74-106)
[2024-10-07 07:30] LABS: BUN/Creatinine Ratio 6.8 (10.0-20.0); Blood Urea Nitrogen < 5 mg/dL (9-23); Magnesium 2.3 mg/dL (1.6-2.6)
[2024-10-07] MEDS: HYDROcodone-ACET 5/325MG TAB PO PRN (08:54)
[2024-10-07] MEDS ORDERED: AUG875T PO (11:43)
--- NOTE | 2024-10-07 13:30 | DVHDSRES ---
Discharge Summary Date of Admission Resident Creating Document: LUPILLO HAUSER RESIDENT Oct 04, 2024 at 21:33 Date of Discharge: Oct 07, 2024 Admitting Diagnosis ALOC Labs/Diagnostic Data: Laboratory Results Test 10/07/24 06:05 10/06/24 12:45 10/05/24 11:53 10/05/24 06:36 White Blood Count 4.7 10^3/uL (4.4-10.8) Red Blood Count 3.38 10^6/uL (4.0-5.20) Hemoglobin 11.9 g/dL (12.2-16.2) Hematocrit 36.0 % (36.0-46.0) Mean Corpuscular Volume 106.3 fL (80.0-100.0) Mean Corpuscular Hemoglobin 35.3 pg (28.0-32.0) Mean Corpuscular Hemoglobin Concent 33.2 g/dL (32.0-36.0) Red Cell Distribution Width 15.9 % (11.8-14.3) Platelet Count 228 10^3/uL (140-450) Mean Platelet Volume 8.2 fL (6.9-10.8) Neutrophils (%) (Auto) 79.7 % (37.0-80.0) Lymphocytes (%) (Auto) 8.0 % (10.0-50.0) Monocytes (%) (Auto) 12.2 % (0.0-12.0) Eosinophils (%) (Auto) 0.0 % (0.0-7.0) Basophils (%) (Auto) 0.1 % (0.0-2.0) Neutrophils # (Auto) 3.7 10 ^3/uL (1.6-8.6) Lymphocytes # (Auto) 0.4 10 ^3/uL (0.4-5.4) Monocytes # (Auto) 0.6 10 ^3/uL (0-1.3) Eosinophils # (Auto) 0 10 ^3/uL (0-0.8) Basophils # (Auto) 0 10 ^3/uL (0-0.2) Nucleated Red Blood Cells 0.0 % Sodium Level 138 mmol/L (136-145) Potassium Level 3.8 mmol/L (3.5-5.1) Chloride Level 107 mmol/L (98-107) Carbon Dioxide Level 21 mmol/L (20-31) Anion Gap 10 (5-15) Blood Urea Nitrogen < 5 mg/dL (9-23) Creatinine 0.73 mg/dL (0.550-1.02) Glomerular Filtration Rate Calc 88 mL/min (>90) BUN/Creatinine Ratio 6.8 (10.0-20.0) Serum Glucose 109 mg/dL (74-106) Calcium Level 9.5 mg/dL (8.7-10.4) Magnesium Level 2.3 mg/dL (1.6-2.6) Group A Streptococcus Rapid Negative Plasma/Serum Blood Alcohol 3.6 mg/dL (<10) Prothrombin Time 10.8 sec (9.3-11.8) Prothrombin Time INR 1.02 (0.9-1.15) Activated Partial Thromboplast Time 29.9 SEC (24.5-34.5) Hemoglobin A1c 5.1 % A1C (<5.7) Total Bilirubin 0.3 mg/dL (0.2-1.0) Aspartate Amino Transferase (AST) 22 U/L (13-40) Alanine Aminotransferase (ALT) 11 U/L (7-40) Alkaline Phosphatase 42 U/L (46-116) Total Protein 6.2 g/dL (5.7-8.2) Albumin 4.0 g/dL (3.2-4.8) Vitamin B12 Level 414 pg/mL (211-911) Vitamin D 25-Hydroxy 123.9 ng/mL (30.0-100) Folic Acid 8.48 ng/mL (>5.38) Thyroid Stimulating Hormone (TSH) 0.58 uIU/mL (0.55-4.78) Test 10/04/24 15:04 10/04/24 14:00 10/04/24 13:30 10/04/24 11:58 Troponin I High Sensitivity 5 ng/L (</=34) Urine Color Yellow (Yellow) Urine Clarity Clear (Clear) Urine pH 8.0 (5.0-9.0) Urine Specific [place] 1.012 (1.001-1.035) Urine Protein Negative (Negative) Urine Ketones Trace (Negative) Urine Blood Negative /uL (Negative) Urine Nitrite Negative (Negative) Urine Bilirubin Negative (Negative) Urine Urobilinogen Normal mg/dL (Negative) Urine Leukocyte Esterase Negative /uL (Negative) Urine RBC <1 /hpf (0 - 4) Urine WBC 1 /hpf (0 - 5) Urine Squamous Epithelial Cells Few /hpf (<5) Urine Bacteria None seen /hpf (None Seen) Urine Glucose Normal mg/dL (Normal) Urine Opiates Screen Neg (NEGATIVE) Urine Fentanyl Screen Neg (NEGATIVE) Urine Barbiturates Screen Neg (NEGATIVE) Urine Phencyclidine Screen Neg (NEGATIVE) Urine Amphetamines Screen Neg (NEGATIVE) Urine Benzodiazepines Screen Neg (NEGATIVE) Urine Cocaine Screen Neg (NEGATIVE) Urine Cannabinoids Screen Neg (NEGATIVE) Influenza Type A Antigen Negative (Negative) Influenza Type B Antigen Negative (Negative) SARS-CoV-2 Antigen (Rapid) Negative (NEGATIVE) Lactic Acid Level 1.5 mmol/L (0.4-2.0) Ammonia < 10 umol/L (11-32) B-Type Natriuretic Peptide 15.70 pg/mL (0-100) Other Laboratory Tests 10/07/24 06:05 Brief Hx & Hospital Course: Jagruti Ortiz is a 69 year old female with PMHx of dementia, rheumatoid arthritis on methotrexate, GERD, congestive heart failure, hypertension, solitary pulmonary nodule who presented to the ER with a chief complaint of altered mental status. Patient was A&O x1 on arrival and had a fever of 102 F associated with dry cough. Patient lives alone and has a caregiver at home for 6 hours daily. On my evaluation, patient is A&O x3 but not aware to why she was brought to the hospital. She reports that she is legally blind, says that she is experiencing the abdominal pain along with nausea but no vomiting. Denies constipation or diarrhea. She reports feeling feverish but does not know for how long she has a fever. Also reports a dry cough. Per H&P, she was prescribed amoxicillin from urgent care for upper respiratory tract infection. Social history, lives alone. Denies drinking/smoking social illicit drug use. Patient is a [employer]. She has a caregiver at home. Son lives 5 minutes away. She ambulates with a walker. Home medications: Benadryl, donepezil, gabapentin, azithromycin, metoprolol, methotrexate injection every week, pravastatin, Triptan, pantoprazole 40 mg daily, topiramate 10/05 - patient seen and examined at the bedside. Patient is A&O x3. Reports no active complaint. Abdominal pain on tenderness. 10/06 - reports feeling little better. Dry cough on deep inhalation. Changed Azithro to doxy. Mrsa nasres. Abd tenderness, CT Abd/pel wo con completed - shows patchy ground-glass opacities in the visualized lower lungs, [id number]-[id number]-right. These may represent developing airspace disease. strep ag negative During the hospital workup, CT scan had completed which showed acute intracranial abnormality. Given the patient came in altered held medication has a dicyclomine, Benadryl, gabapentin. Abdominal pain for which CT abdomen completed which showed no abdominal pathology. Also showed patchy ground-glass opacities in the visualized lower lungs, [id number]-[id number]-[id number]-right. These may represent developing airspace disease. Patient received IV ceftriaxone starting 10/05 to 10/07,completed azithro 10/05 to 10/06, Changed Azithro to doxy 10/06 to 10/07. Along with nebulized treatment. Rapid streptococcal antigen was negative. Preliminary Throat culture was negative for beta hemolytic strep. R espiratory Culture Preliminary shows Few growth: Normal Oropharyngeal Sangeetha. Blood Culture Preliminary shows NO GROWTH AFTER 72 HOURS OF INCUBATION. P atient reported CHF, BNP 15. Echocardiogram 10/05 Normal left ventricular size and dimension. Normal left ventricular systolic function estimated ejection fraction 55%. There is a grade 1 diastolic dysfunction. Physical therapy was consulted - recommended home health, wheelchair and ucxue-fk-aeq commode 10/07 - Patient is cliically, hemodynamically stable, Reports no active complaint. Satting 95 on room air , therefore patient is being discharged to home with home health services for PT. Discharge meds: Augmentin 875mg twice daily for 10 days. Patient agreed to the plan. Examination Elderly female patient lying in bed, in no acute distress, wearing glasses because he can not see. General: Cachectic-looking, afebrile, palor, mucosae are dry Cardiovascular: Regular S1 and S2. No murmurs, gallops or rubs. No JVD elevation. Bilateral 1+ pitting edema Respiratory: Decreased bilateral air entry with B/l rhonchi. On Room air. Dry cough on deep inhalation Abdomen: Soft, tender right upper quadrant and epigastrium, nondistended, normoactive bowel sounds, no rebound tenderness, no organomegaly, no masses Genitourinary: Deferred MSK/skin: Mobilizes 4 limbs. Skin is dry and warm Neurological: No motor, no sensitive deficits, normal speech. Pupils are isocoric and reactive. Psych/Mental Status: A/Ox3-not oriented to situation Operations or Procedures ORDERING PHYSICIAN: ITALO DENNISON RESIDENT PROCEDURE(s): ABPL - CT AB PEL WO CON-NO ORAL OR IV REASON: abdominal pain ORDER NUMBER(s): [id number], ACCESSION NUMBER(s): [id number] CT ABDOMEN AND PELVIS WITHOUT CONTRAST CLINICAL HISTORY: abdominal pain TECHNIQUE: Multidetector CT of the abdomen was performed from lung bases to pubic symphysis. Imaging was performed without IV contrast. Axial, coronal and sagittal multiplanar reformats were obtained from the axial data set by the technologist. Radiation optimization: All CT scans at this facility use at least one of these dose optimization techniques: automated exposure control mA and/or kV adjustment per patient size (includes targeted exams where dose is matched to clinical indication) or iterative reconstruction. Radiation Dose Information: CT Dose: CTDI volume is 5.34 mGy. Dose-length product is 259.6 mGy*cm Comparison: None FINDINGS: Evaluation of the abdominal viscera is limited without intravenous contrast. The liver, gallbladder, pancreas, kidneys, adrenal glands, and spleen appear within normal limits. There is no gross evidence of abdominal lymphadenopathy. There is no free fluid or free air. The stomach grossly appears unremarkable. The small and large bowel loops demonstrate normal caliber. The abdominal aorta and IVC appear within normal limits. The bladder appears unremarkable for the degree of distention. Uterus is surgically absent. There is no gross evidence of a pelvic mass or free fluid.. There are patchy ground-glass opacities in the visualized lower lungs, xrqt-[id number]-jdwo-right. These may represent developing airspace disease. There is no acute osseous abnormality. IMPRESSION: 1. There is no acute process in the abdomen and pelvis.. 2. Nonspecific patchy ground-glass opacities in the visualized lower lungs, ozby-clncpom-kdvw-right. Developing airspace disease is not excluded. Clinical correlation is recommended. HS:Y ATED BY: RILEY JACKSON MD DICTATED DATE/TIME: 10/06/24 1210 SIGNED BY: RILEY JACKSON MD SIGNED DATE/TIME: 10/06/24 1210 CC: ORDERING PHYSICIAN: LUPILLO HAUSER PROCEDURE(s): LIVUS - LIVER REASON: RUQ pain ORDER NUMBER(s): [id number], ACCESSION NUMBER(s): [id number] Procedure: US LIVER 10/05/2024 08:46 AM Indication: RUQ pain. Comparison: None Technique: Grayscale and color images of the right upper quadrant were obtained. FINDINGS: ASCITES: None. LIVER: Liver measures 11.3 cm craniocaudal. Liver parenchyma is homogeneous in echotexture. No focal lesion is identified. No intrahepatic ductal dilatation. Normal directional flow is seen in the portal vein. GALLBLADDER: No gallstones. No gallbladder wall edema or pericholecystic fluid. A fold is seen in gallbladder lumen. Sonographic Jama's sign is negative. COMMON BILE DUCT: 0.2 cm in caliber, within normal limits. PANCREAS: Visualized portions are unremarkable. RIGHT KIDNEY: Normal in size, 8.3 cm in length without hydronephrosis. No focal lesions identified. AORTA, IVC: Visualized portions are unremarkable. OTHER: None. IMPRESSION: 1. No sonographic evidence for acute abnormality in the right upper quadrant. No cholelithiasis or evidence of cholecystitis. ATED BY: KAITLIN HENRIQUEZ MD DICTATED DATE/TIME: 10/05/24 0941 ORDERING PHYSICIAN: JASVIR ROBLEDO DO PROCEDURE(s): HWOCT - HEAD WITHOUT CONTRAST REASON: confusion ORDER NUMBER(s): [id number], ACCESSION NUMBER(s): [id number] EXAM: CT HEAD WITHOUT CONTRAST HISTORY: confusion COMPARISON: None TECHNIQUE: Axial images were obtained and reformatted in coronal and sagittal planes. All CT scans at this medical facility are performed using dose modulation techniques as appropriate to a performed exam including the following: Automated exposure control was utilized; adjustment of the MA and/or KV according to patient size; and use of iterative reconstruction technique. CT Dose: CTDI volume is 54.43 mGy. Dose-length product is 963.84 mGy*cm FINDINGS: Supratentorial Region: No evidence for large acute territorial ischemia. No intracranial hemorrhage is noted. Posterior Fossa: No acute abnormality. Brainstem: Unremarkable. Sellar/Suprasellar Region: Unremarkable. Ventricles, Cisterns, Sulci: Age-appropriate. Orbits: Unremarkable. Paranasal Sinuses: Unremarkable. Mastoid Air Cells: Unremarkable. Vasculature: Unremarkable. Bones/Soft Tissues: No acute abnormality. Other: None. IMPRESSION: 1. No acute intracranial process. ATED BY: KAITLIN HENRIQUEZ MD DICTATED DATE/TIME: 10/04/241316 SIGNED BY: KAITLIN HENRIQUEZ MD SIGNED DATE/TIME: 10/04/241316 CC: Condition at Discharge: Fair Final Diagnosis/Problems List Acute metabolic encephalopathy likely due to pneumonia Probable community-acquired pneumonia, Gram-positive and Gram-negative Probable congestive heart failure - no exacerbation Anemia likely microcytic-cause unknown Low likelihood of NILS GERD Hx of dementia Dyslipidemia Discharge Disposition: Home with Health Services Discharge Instruct/Medications Diet: Cardiac 2g Na,low cholest Activity: Light activity Follow Up/Referral: Follow up with primary care physician within 7 days Medications: Follow up with primary care physician within 7 days Discharge Statement: "Patient was advised to return to the ER or call 911 if any headaches, dizziness, shortness of breath, chest pain, abdominal pain, bleeding, fevers, or worsening of medical condition. Patient was counseled about treatment plan, medications, possible side effects, patientverbalized understanding. All questions were answered to the best of my ability. This discharge took greater then 30 minutes in planning, reviewing documentation, counseling the patient, and discussing with other team members." ASSESSMENT ASSESSMENT Assessment Acute metabolic encephalopathy likely due to pneumonia Probable community-acquired pneumonia, Gram-positive and Gram-negative Date of Service: Oct 07, 2024 Billing Provider: FOZIA ORO MD Common Visit Codes: 73326-ECL/OBS DISCH DAY >30min LUPILLO HAUSER RESIDENT Oct 07, 2024 13:30 FOZIA ORO MD Oct 08, 2024 16:59
== END 2024-10-07 20:00 | disposition home health service (06) | DRG 177 ==
LOC: EDSEX 11:31 → EDBD 11:31 → EDUNIT# 11:31 → ER 11:31 → OVERFLOW 21:33 → WEST WING 21:37
PROVIDERS: ADMIT Student in an Organized Health Care Education/Training Program; ATTEND Emergency Medicine
DX: J15.69 Pneumonia due to other Gram-negative bacteria (principal); G93.41 Metabolic encephalopathy; N17.0 Acute kidney failure with tubular necrosis; J15.9 Unspecified bacterial pneumonia; K21.9 Gastro-esophageal reflux disease without esophagitis; E78.5 Hyperlipidemia, unspecified; F03.90 Unspecified dementia, unspecified severity, without behavioral disturbance, psychotic disturbance, mood disturbance, and anxiety; I11.0 Hypertensive heart disease with heart failure; I50.9 Heart failure, unspecified; M06.9 Rheumatoid arthritis, unspecified; Z20.822 Contact with and (suspected) exposure to COVID-19; D50.9 Iron deficiency anemia, unspecified
CPT/HCPCS: 36415; 70450; 71045; 74176; 76705; 80048; 80053; 80307; 80320; 81001; 82140; 82306; 82607; 82746; 83036; 83605; 83735; 83880; 84443; 84484; 85025; 85610; 85730; 87040; 87070; 87081; 87205; 87426; 87804; 87880; 93306; 94640; 96365; 97110; 97163; 97530; G0378; J2470; J3490